=== PATIENT | male | born 1975 | race Caucasian/White ===

== ENCOUNTER 2023-08-04 07:36 | Day surgery (SDC) | payer BC ==
[2023-07-30 16:20] VITALS: BMI 31.0
[2023-08-04] MEDS: LACTATED RINGERS 1,000 ML IV SCH (08:03)
[2023-08-04 08:17] LABS: Glucose,Whole Blood 106 mg/dL (70-110)
[2023-08-04 08:25] VITALS: TEMP 97
[2023-08-04] MEDS ORDERED: fentaNYL (PF) 50 MCG/ML 2 ML AMP ONE (08:41)
[2023-08-04] MEDS ORDERED: MIDAZOLAM 2 MG/2 ML VIAL ONE (08:41)
[2023-08-04] MEDS ORDERED: PROPOFOL 10 MG/ML 20 ML VIAL IV ONE (08:41)
--- NOTE | 2023-08-04 08:44 | P.GSHP ---
History of Present Illness H&P Date: 08/04/23 Chief Complaint: GERD, screening 48-year-old male for upper and lower endoscopy. Patient has chronic reflux increased belching. Here for screening colonoscopy. Last colonoscopy 20 years ago. No family history of colon cancer. No bowel complaints. Past Medical History Past Medical History: Diabetes Mellitus, GERD/Reflux, Hyperlipidemia, Hypertension Additional Past Medical History / Comment(s): Other HX: NIDDM, viral spinal meningitis as a baby, chicken pox as a child. History of Any Multi-Drug Resistant Organisms: None Reported Past Surgical History: Cholecystectomy, Orthopedic Surgery Additional Past Surgical History / Comment(s): low back injections, L knee arthroscopy for meniscus tear, L tib/fib fx with surgery and rodding. L torn retina repair. COLONOSCOPY/EGD Past Anesthesia/Blood Transfusion Reactions: No Reported Reaction Additional Past Anesthesia/Blood Transfusion Reaction / Comment(s): Pt has never recieved blood. TAKES A LOT OF ANESTHESIA TO PUT PT UNDER Smoking Status: Never smoker - Past Family History Father Family Medical History: Myocardial Infarction ([place]) Additional Family Medical History / Comment(s): Father has had CABG Mother Family Medical History: Cancer, Coronary Artery Disease (CAD), Hypertension Additional Family Medical History / Comment(s): Mother has had caratid end artectomy. Medications and Allergies Home Medications Medication Instructions Recorded Confirmed Type Atorvastatin [Lipitor] 20 mg PO W/LUNCH 06/02/14 08/04/23 History Fenofibrate 160 mg PO W/LUNCH 06/02/14 08/04/23 History Multivitamin [Men's Multi-Vitamin] 1 tab PO W/LUNCH 06/02/14 08/04/23 History lisinopriL [Zestril] 10 mg PO W/LUNCH 06/02/14 08/04/23 History metFORMIN HCL [Glucophage] 500 mg PO W/LUNCH 06/02/14 08/04/23 History Empagliflozin [Jardiance] 25 mg PO W/LUNCH 07/30/23 08/04/23 History Omeprazole 40 mg PO W/LUNCH 07/30/23 08/04/23 History Semaglutide [Ozempic] 1 mg SQ MO 07/30/23 07/30/23 History Tamsulosin [Flomax] 0.4 mg PO W/LUNCH 07/30/23 08/04/23 History glipiZIDE [glipiZIDE ER] 10 mg PO W/LUNCH 07/30/23 08/04/23 History Allergies Allergy/AdvReac Type Severity Reaction Status Date / Time No Known Allergies Allergy Verified 08/04/23 08:09 Surgical - Exam Vital Signs Temp Pulse Resp BP Pulse Ox 97.0 F L 72 18 106/71 95 08/04/23 08:01 08/04/23 08:01 08/04/23 08:01 08/04/23 08:01 08/04/23 08:01 Physical exam: General: Well-developed, well-nourished HEENT: Normocephalic, sclerae nonicteric Abdomen: Nontender, nondistended Extremities: No edema Neuro: Alert and oriented Assessment and Plan (1) Colon cancer screening Narrative/Plan: Will proceed with upper and lower endoscopy Current Visit: Yes Status: Acute Code(s): Z12.11 - ENCOUNTER FOR SCREENING FOR MALIGNANT NEOPLASM OF COLON SNOMED Code(s): 702340182
--- NOTE | 2023-08-04 09:17 | P.PCN ---
Date of Procedure: 08/04/23 Procedure(s) Performed: PREOPERATIVE DIAGNOSIS: GERD, screening POSTOPERATIVE DIAGNOSIS: Gastritis, hiatal hernia, normal colon PROCEDURE: 1. EGD with biopsy 2. Colonoscopy ANESTHESIA: MAC SURGEON: Brandon Palomo M.D. SPECIMENS: Antrum ENDOSCOPIC PROCEDURE: The patient was on the endoscopy table in the left decubitus position. The Olympus gastroscope was inserted into the oropharynx and passed under direct visualization to the region of the third portion of the duodenum. From that point the scope was slowly withdrawn inspecting all surfaces carefully. There were no neoplastic inflammatory or polypoid lesions throughout the duodenum. The pylorus was widely patent. The stomach was carefully inspected. There was mild gastritis present. A biopsy of the antrum took place to rule out H. pylori. Retroflexion revealed a small sliding mild to moderate. The esophagus was then carefully examined. There were no neoplastic inflammatory or polypoid lesions throughout the visualized esophagus. The patient was kept on the endoscopy table in the left decubitus position. The Olympus colonoscope was inserted into the anus and passed under direct visualization to the base of the cecum. The appendiceal orifice was visualized. From that point the scope was slowly withdrawn inspecting all surfaces carefully. There were no neoplastic inflammatory or polypoid lesions throughout the cecum, ascending, transverse, descending, sigmoid and rectum. There was no visible diverticulosis noted. Digital rectal examination was normal. The patient was taken to the recovery room in stable condition per anesthesia guidelines. RECOMMENDATIONS: Resume diet. Continue antiacids. Repeat colonoscopy 10 years.
[2023-08-04 09:47] VITALS: BP 110/77; PULSE 68; RESP 20
== END 2023-08-04 09:58 ==
LOC: ORWHC2ENDO 07:36
PROVIDERS: ATTEND Surgery
DX: Z12.11 Encounter for screening for malignant neoplasm of colon (principal); K29.50 Unspecified chronic gastritis without bleeding; K21.9 Gastro-esophageal reflux disease without esophagitis; K44.9 Diaphragmatic hernia without obstruction or gangrene; E11.9 Type 2 diabetes mellitus without complications; E78.5 Hyperlipidemia, unspecified; I10 Essential (primary) hypertension; Z79.84 Long term (current) use of oral hypoglycemic drugs; Z90.49 Acquired absence of other specified parts of digestive tract; Z98.890 Other specified postprocedural states; Z82.49 Family history of ischemic heart disease and other diseases of the circulatory system; Z79.899 Other long term (current) drug therapy
CPT/HCPCS: 45378; 43239; J2250; J3010; J2704; 88305